=== PATIENT | male | born 1950 | race Caucasian/White ===

== ENCOUNTER 2018-10-04 11:36 | Observation (INO) | payer MEDICARE, OTHER ==
[~2018-10-04] VITALS: Ht 175.3 cm; Wt 64.4 kg
[2018-10-04] MEDS ORDERED: NS(*) 0.9% 500 ML BAG 500 ML IV ONE (11:42)
--- NOTE | 2018-10-04 11:42 | ER Report ---
History and Physical Time Seen By MD: 11:42 Hx. of Stated Complaint: Lightheadedness and dizziness while driving his RV through [place] HPI/ROS CHIEF COMPLAINT: Dizziness HISTORY OF PRESENT ILLNESS: 68 year old male presents to ED with dizziness and blurry vision that occurred while driving his RV through [place]. Reports he was talking to his bank on the phone when this occurred. States he was really angry, then all of a sudden he felt lightheaded and had blurry vision, so he pulled over on the side of the road. States he had a slight headache as well. Reports he doesn't remember anything after that. Denies associated symptoms of chest pain, SOB, nausea, vomiting. Josef is driving from [place] to [facility]. He has been on the road for 6 days. REVIEW OF SYSTEMS: Constitutional: No fever, no chills. HEENT: Reports slight headache that was present with the dizziness. Respiratory: No cough, no dyspnea. Cardiovascular: No chest pain, no palpitations. Gastrointestinal: No vomiting, no abdominal pain. Musculoskeletal: No back pain. Allergies: Coded Allergies: No Known Drug Allergies (Unverified , 10/04/18) Past Medical/Surgical History Past medical hx significant for CVA in 2013, asthma, throat cancer treated with radiation in 2004- in remission, thyroid disorder. Due to radiation, has trouble swallowing, so has feeding tube placed. Significant past surgical hx significant for stent placement in 2013 and throat surgery in 2004. Reviewed Nurses Notes: Yes Constitutional Vital Sign - Last 24 Hours 10/04/18 10/04/18 10/04/18 10/04/18 11:36 11:37 11:41 11:50 Pulse ??? 104 Resp 24 B/P (MAP) 127/79 (95) 127/79 Pulse Ox 93 O2 Delivery Nasal Cannula O2 Flow Rate 3.0 10/04/18 10/04/18 10/04/18 10/04/18 11:59 12:00 12:06 12:30 Pulse 98 Resp 26 B/P (MAP) 82/55 (64) 86/72 (77) 131/76 (94) Pulse Ox 92 10/04/18 10/04/18 10/04/18 10/04/18 12:36 12:41 13:00 13:11 Pulse ??? 95 Resp 20 15 B/P (MAP) 129/75 (93) Pulse Ox 93 10/04/18 10/04/18 10/04/18 13:30 13:52 13:57 B/P (MAP) 118/67 (84) 127/84 (98) Pulse Ox 93 Physical Exam General Appearance: The patient is alert, has no immediate need for airway protection and no current signs of toxicity. Eyes: Pupils equal and round no injection. Respiratory: Chest is non tender, lungs are coarse throughout with diminished breath sounds bilaterally with auscultation. Cardiac: regular rate and rhythm with murmur- had stent placed in 2013 Gastrointestinal: Abdomen is soft and non tender, no masses, bowel sounds normal. Musculoskeletal: Neck: Neck is supple and non tender. Extremities have full range of motion and are non tender. Skin: No rashes or lesions. DIFFERENTIAL DIAGNOSIS: After history and physical exam differential diagnosis was considered for dehydration, stress/anxiety, altitude sickness, IN, stroke, PE Medical Decision Making Data Points Result Diagram: 10/04/18 1134 10/04/18 1134 Laboratory Hematology Test 10/04/18 11:34 Red Blood Count 4.94 M/uL (4.00-5.60) Mean Corpuscular Volume 91.7 fL (80.0-96.0) Mean Corpuscular Hemoglobin 30.4 pg (26.0-33.0) Mean Corpuscular Hemoglobin Concent 33.2 g/dL (32.0-36.0) Red Cell Distribution Width 15.3 % (11.5-14.5) Mean Platelet Volume 9.3 fL (7.2-11.1) Neutrophils (%) (Auto) 82.3 % (39.4-72.5) Lymphocytes (%) (Auto) 9.4 % (17.6-49.6) Monocytes (%) (Auto) 7.1 % (4.1-12.4) Eosinophils (%) (Auto) 0.9 % (0.4-6.7) Basophils (%) (Auto) 0.3 % (0.3-1.4) Nucleated RBC Relative Count (auto) 0.0 /100WBC Neutrophils # (Auto) 6.5 K/uL (2.0-7.4) Lymphocytes # (Auto) 0.7 K/uL (1.3-3.6) Monocytes # (Auto) 0.6 K/uL (0.3-1.0) Eosinophils # (Auto) 0.1 K/uL (0.0-0.5) Basophils # (Auto) 0.0 K/uL (0.0-0.1) Nucleated RBC Absolute Count (auto) 0.00 K/uL Prothrombin Time 12.6 seconds (12.0-14.4) Prothromb Time International Ratio 0.95 Activated Partial Thromboplast Time 25 seconds (23-35) Sodium Level 139 mmol/L (137-145) Potassium Level 4.5 mmol/L (3.5-5.0) Chloride Level 94 mmol/L (98-107) Carbon Dioxide Level 35 mmol/L (22-30) Blood Urea Nitrogen 42 mg/dl (9-21) Creatinine 1.00 mg/dl (0.66-1.25) Glomerular Filtration Rate Calc > 60.0 Random Glucose 138 mg/dl (75-110) Calcium Level 9.7 mg/dl (8.4-10.2) Total Bilirubin 0.3 mg/dl (0.2-1.3) Aspartate Amino Transf (AST/SGOT) 32 U/L (0-35) Alanine Aminotransferase (ALT/SGPT) 29 U/L (0-56) Alkaline Phosphatase 136 U/L (0-126) Troponin I < 0.012 ng/ml B-Type Natriuretic Peptide 24 pg/ml (0-100) Total Protein 8.8 g/dl (6.3-8.2) Albumin 4.1 g/dl (3.5-5.0) Chemistry Test 10/04/18 11:34 White Blood Count 7.9 k/uL (4.5-11.0) Red Blood Count 4.94 M/uL (4.00-5.60) Hemoglobin 15.0 g/dL (14.0-18.0) Hematocrit 45.2 % (42.0-52.0) Mean Corpuscular Volume 91.7 fL (80.0-96.0) Mean Corpuscular Hemoglobin 30.4 pg (26.0-33.0) Mean Corpuscular Hemoglobin Concent 33.2 g/dL (32.0-36.0) Red Cell Distribution Width 15.3 % (11.5-14.5) Platelet Count 224 K/uL (150-450) Mean Platelet Volume 9.3 fL (7.2-11.1) Neutrophils (%) (Auto) 82.3 % (39.4-72.5) Lymphocytes (%) (Auto) 9.4 % (17.6-49.6) Monocytes (%) (Auto) 7.1 % (4.1-12.4) Eosinophils (%) (Auto) 0.9 % (0.4-6.7) Basophils (%) (Auto) 0.3 % (0.3-1.4) Nucleated RBC Relative Count (auto) 0.0 /100WBC Neutrophils # (Auto) 6.5 K/uL (2.0-7.4) Lymphocytes # (Auto) 0.7 K/uL (1.3-3.6) Monocytes # (Auto) 0.6 K/uL (0.3-1.0) Eosinophils # (Auto) 0.1 K/uL (0.0-0.5) Basophils # (Auto) 0.0 K/uL (0.0-0.1) Nucleated RBC Absolute Count (auto) 0.00 K/uL Prothrombin Time 12.6 seconds (12.0-14.4) Prothromb Time International Ratio 0.95 Activated Partial Thromboplast Time 25 seconds (23-35) Glomerular Filtration Rate Calc > 60.0 Calcium Level 9.7 mg/dl (8.4-10.2) Total Bilirubin 0.3 mg/dl (0.2-1.3) Aspartate Amino Transf (AST/SGOT) 32 U/L (0-35) Alanine Aminotransferase (ALT/SGPT) 29 U/L (0-56) Alkaline Phosphatase 136 U/L (0-126) Troponin I < 0.012 ng/ml B-Type Natriuretic Peptide 24 pg/ml (0-100) Total Protein 8.8 g/dl (6.3-8.2) Albumin 4.1 g/dl (3.5-5.0) Coagulation Test 10/04/18 11:34 Prothrombin Time 12.6 seconds Prothromb Time International Ratio 0.95 Activated Partial Thromboplast Time 25 seconds EKG/Imaging EKG Interpretation 12 lead EKG: Rhythm: normal sinus rhythm with a ventricular rate of 99 [place]: normal QRS: normal ST segments: normal Monitor Interpretation: Normal Sinus Rhythm Imaging Technique: CHEST PA LAT HISTORY: Dizziness Comparison studies: None FINDINGS: Scattered interstitial and reticular lung markings are noted. No pleural effusion. There is biapical pleural thickening. Atherosclerotic changes are noted within the thoracic aorta. The cardiac silhouette is unremarkable. IMPRESSION: 1. Chronic lung findings as above. Superimposed interstitial pneumonia is difficult to exclude given absence of comparison radiographs. Report Dictated By: Robert Riley DO at 10/04/2018 12:53 PM Report E-Signed By: Robert Riley DO at 10/04/2018 12:55 PM ED Course/Re-evaluation ED Course Upon arrival to the ED via EMS, patient was admitted to an exam room, hx and physical obtained, differentials considered. Josef presents to ED with dizziness and blurry vision that occurred [place]. Reports he was talking to his bank on the phone when this occurred. States he was really angry, then all of a sudden he felt lightheaded and had blurry vision, so he pulled over on the side of the road. States he had a slight headache as well. Reports he doesn't remember anything after that. Denies associated symptoms of chest pain, SOB, nausea, vomiting. Josef is driving from [place] to [facility]. He has been on the road for 6 days. Heart with murmur, regular rate. Lungs coarse and diminished throughout. O2 levels below 90% on RA. EKG, chest x-ray, CBC, CMP, coag studies, troponin, BNP ordered. IV started. 1L NS infused. 81mg Aspirin given. O2 via NC administered. WBC 7.9, Neutrophils 82.3, RBC 4.94, BUN 452, Cr 1.0, Alk phos 136, troponin negative, PT/INR wnl. Chest x-ray findings: Scattered interstitial and reticular lung markings are noted. No pleural effusion. There is biapical pleural thickening. Atherosclerotic changes are noted within the thoracic aorta. The cardiac silhouette is unremarkable. Superimposed interstitial pneumonia is difficult to exclude given absence of comparison radiographs. Will treat for pneumonia with azithromycin. Patient taken off of O2, and able to keeps sats at 88% and above on RA. Was planning on discharging home, but as patient was going to the restroom prior to discharge, he passed out in the bathroom. Dr. Pepe- Still, hospitalist, consulted with. Will plan to admit patient to observe overnight. Patient is in agreement with plan of care. Decision to Disposition Date: Oct 04, 2018 Decision to Disposition Time: 13:22 Depart Departure Latest Vital Signs Vital Signs Date Time Temp Pulse Resp B/P (MAP) Pulse Ox O2 Delivery O2 Flow Rate FiO2 10/04/18 13:57 93 10/04/18 13:52 127/84 (98) 10/04/18 13:11 95 15 10/04/18 11:50 3.0 10/04/18 11:41 Nasal Cannula Impression: Primary Impression: Syncope Additional Impressions: Pneumonia Dehydration Condition: Condition Unchanged Disposition: Admitted from ER EKG TECHNICIAN/PA consult with MD: Verbally Problem Qualifiers Primary Impression: Syncope Syncope type: unspecified Qualified Codes: R55 - Syncope and collapse Additional Impressions: Pneumonia Pneumonia type: due to unspecified organism Laterality: bilateral Lung location: unspecified part of lung Qualified Codes: J18.9 - Pneumonia, unspecified organism YARITZA ESTEVEZ Oct 04, 2018 11:42
[2018-10-04] MEDS ORDERED: ASPIRIN 81 MG CHEW PO ONE (11:45)
[2018-10-04 11:49] LABS: PLATELET COUNT, AUTOMATED 224 K/uL (150-450)
--- NOTE | 2018-10-04 11:58 | EKG ---
FACILITY: [facility] [place] PATIENT NAME: SENIA BOSCH : [id number] MR: [id number] V: [id number] EXAM DATE: ORDERING PHYSICIAN: YARITZA ESTEVEZ TECHNOLOGIST: KIMBERLEY Test Reason : CP/SOB Blood Pressure : / mmHG Vent. Rate : 099 BPM Atrial Rate : 099 BPM P-R Int : 168 ms QRS Dur : 086 ms QT Int : 348 ms P-R-T Axes : 065 054 074 degrees QTc Int : 446 ms Normal sinus rhythm Normal ECG No previous ECGs available Confirmed by Xavier Workman ([id number]) on 10/04/2018 5:17:58 PM Referred By: ZENAIDA Confirmed By:Xavier Feng
[2018-10-04 11:59] LABS: INR 0.95
--- NOTE | 2018-10-04 12:59 | RADIOLOGY IMAGING REPORT ---
FACILITY: [facility] PATIENT NAME: Josef Rush : 1950 MR: [id number] V: [id number] EXAM DATE: ORDERING PHYSICIAN: YARITZA ESTEVEZ TECHNOLOGIST: Location: [facility] [place] Patient: Josef Rush : 1950 Visit/Account:[id number] Date of Sevice: 10/04/2018 Technique: CHEST PA LAT HISTORY: Dizziness Comparison studies: None FINDINGS: Scattered interstitial and reticular lung markings are noted. No pleural effusion. There is biapical pleural thickening. Atherosclerotic changes are noted within the thoracic aorta. The cardia c silhouette is unremarkable. IMPRESSION: 1. Chronic lung findings as above. Superimposed interstitial pneumonia is difficult to exclude given absence of comparison radiographs. Report Dictated By: Robert Riley DO at 10/04/2018 12:53 PM Report E-Signed By: Robert Riley DO at 10/04/2018 12:55 PM WSN:[id number]
[2018-10-04] MEDS ORDERED: AZITHROMYCIN 100 MG/5 ML SUSP PO ONE (13:25)
[2018-10-04] MEDS ORDERED: AZITHROMYCIN 600 MG/15 ML BTL PO ONE (13:35)
[2018-10-04] MEDS ORDERED: PATIENT'S OWN MED FT SCH (15:15)
[2018-10-04 15:21] VITALS: BP 141/97
--- NOTE | 2018-10-04 17:04 | History & Physical ---
History of Present Illness Chief Complaint syncope History of Present Illness 68M presented after syncopal episode. PMHx significant for stroke, head/neck cancer, dysphagia. Reports driving to [place] in from [place], he has been reducing his prescribed free water and Jevity while traveling. Began feeling poorly [place], stopped and felt unwell there. Asked for warm washcloth and next thing he knew was waking up. EMS found him to have normal vital signs. Brought to ER where work up showed mild dehydration, low BP, possible interstitial pneumonia superimposed on significant fibrosis and scaring. Was set to be discharged after IV fluids with Zpack and had another syncopal episode after rushing up to restroom,. previous syncopal episodes years ago. Denies CP, edema, palpitations. Admitted for observation and monitoring on telemetry. History Problems: (1) Head and neck cancer Status: Chronic (2) Dysphagia Status: Chronic (3) Stroke Status: Chronic Allergies: Coded Allergies: No Known Drug Allergies (Unverified , 10/04/18) Patient History: FH: dementia FATHER (Father had Cardiac Disease and Dementia ) MOTHER FHx: heart disease FATHER (Father had Cardiac Disease and Dementia ) BROTHER OR SISTER Hx Smoking: Yes Smoking Status: Former Smoker When Quit Tobacco?: 2003 Hx Alcohol Use: Yes (use to have occational drink none now) Hx Substance Use Disorder: No History of IV Drug Use: No Review of Systems All Systems Reviewed/Normal: Yes, Except as Noted Neurological: Syncope Cardiovascular: Orthostatic Hypotension; No Chest Pain, No Palpitations Respiratory: No Shortness of Breath, No Cough Exam Vital Signs Vital Signs Date Time Temp Pulse Resp B/P (MAP) Pulse Ox O2 Delivery O2 Flow Rate FiO2 10/04/18 15:35 97 Nasal Cannula 4.0 10/04/18 15:21 97.7 91 16 141/97 (112) General Appearance: Alert, Awake, No Acute Distress Neuro: No Gross deficits Cardiovascular: Normal Rhythm & Peripheral Pulses Respiratory: No Respiratory Distress GI: Abd Soft and Non-Tender Extremities: Soft and Non Tender, Warm, Pulses, Perfused Medical Decision Making Data Points Result Diagram: 10/04/18 1134 10/04/18 1134 EKG / Imaging EKG Interpretation NSR Assessment and Plan Problems: (1) Syncope Status: Acute Assessment & Plan: Apparently secondary to dehydration, orthostasis, mild hypoxia. EKG NSR, no chest pain. Will monitor on telemetry, continue IV hydration. (2) Dehydration Status: Acute Assessment & Plan: Continue IV hydration, encourage taking full free water camacho unt prescribed. (3) Pneumonia Status: Acute Assessment & Plan: Interstitial atypical pneumonia. Will continue Zpack previously prescribed. Wean O2 as tolerated. (4) Dysphagia Status: Chronic Assessment & Plan: Has PEG for which he gets all nutrition through. Continue Jevity and 300cc free water TID. (5) Head and neck cancer Status: Chronic Assessment & Plan: Post radiation and chemotherapy 2003. (6) Stroke Status: Chronic Assessment & Plan: 2013, no residual deficits. Has carotid stent. Venous Thromboembolism Antithrombotics Is Pt On Any Antithrombotics?: Yes Exam Sepsis Risk: No Definite Risk Problem Qualifiers (1) Syncope: Syncope type: unspecified Qualified Codes: R55 - Syncope and collapse (2) Pneumonia: Pneumonia type: due to unspecified organism Laterality: bilateral Lung location: unspecified part of lung Qualified Codes: J18.9 - Pneumonia, unspecified organism CHUCK CANTU DO Oct 04, 2018 17:04
[2018-10-04] MEDS: NS(*) 0.9% 1000 ML BAG 1,000 ML IV PRN ×2 (17:14→23:48)
[2018-10-04] MEDS ORDERED: AZITHROMYCIN 600 MG/15 ML BTL FT SCH (17:30)
[2018-10-04 18:28] VITALS: BP 112/66
[2018-10-04 18:30] VITALS: BP 98/6
[2018-10-04 18:34] VITALS: BP 90/48
[2018-10-04] MEDS ORDERED: LAN30PT PO (18:40)
[2018-10-04] MEDS ORDERED: AZEL137S NS (18:41)
[2018-10-04] MEDS ORDERED: LEVO88TA45 PO (18:43)
[2018-10-04] MEDS ORDERED: ALB6.7R INH ×2 (18:45)
[2018-10-04 23:00] VITALS: BP 111/75
[2018-10-05 03:11] VITALS: BP 111/71
[2018-10-05 07:55] VITALS: BP 93/58
[2018-10-05] MEDS ORDERED: AZITHROMYCIN 600 MG/15 ML BTL PO SCH ×2 (09:00)
[2018-10-05] MEDS: LEVOTHYROXINE SOD 0.088 MG TAB FT SCH (09:07)
--- NOTE | 2018-10-05 09:09 | NUR ---
Patient and spouse state he took his own levothyroxine 88mg this morning.
--- NOTE | 2018-10-05 09:14 | RADIOLOGY IMAGING REPORT ---
FACILITY: [facility] [place] PATIENT NAME: Josef Rush : 1950 MR: [id number] V: [id number] EXAM DATE: ORDERING PHYSICIAN: UMBERTO COLVIN TECHNOLOGIST: Location: [facility] Patient: Josef Rush : 1950 Visit/Account:[id number] Date of Sevice: 10/05/2018 CHEST SINGLE AP Indication: hypoxia Comparison: Chest x-ray 10/04/2018 Findings: Lungs: Bilateral apical thickening/scarring is unchanged. Prominent interstitial markings both lung bases are stable. There is no focal airspace opacity or consolidation. Mediastinum/pulmonary vasculature: Heart size and pulmonary vasculature are normal. Bones/soft tissues: Normal. IMPRESSION: 1. Chronic scarring right and left apex. 2. No acute airspace opacity or pneumonia. Report Dictated By: Yosvany Hinton at 10/05/2018 9:08 AM Report E-Signed By: Yosvany Hinton at 10/05/2018 9:09 AM [id number]:[email or web address]
--- NOTE | 2018-10-05 09:19 | Medical Nutrition Therapy ---
Nutrition Anthropometrics Height (Inches): 69.00 Height (Calculated Centimeters: 175.029184 Weight (Pounds): 142 Weight (Calculated Kilograms): 64.410 BMI: 21 Derrek Nutrition Score: Adequate Derrek Nutrition Risk Score: 22 Dietary Referral Nutrition Risk Factors: Tube Feeding Nutrition Risk Comment: Pt manages Tube Feed, has stablized in weight Physical Findings Physical Appearance: Skin Appearance Skin Appearance: Edema Edema Location Modifier: Edema Location: Type of Edema: Degree of Edema: Gastrointestinal Symptoms GI Symtoms: Tube Present: PEG, Feeding Bowel Sounds: Recent Bowel Pattern: Stool Characteristics: Nutrition/Food History Difficulty Swallowing Good Nutritional Diagnosis Nutritional Risk Acuity 2: Head/Neck/GI Cancer Past Medical History: Stroke, Dysphagia, Mouth and Throat Cancer 2003 Nutritional Acuity: 2-Moderate Nutrition Diagnosis: Inadequate Fluid Intake Nutrition Etiology: Inadeq. Food/Irene Intake Nutrition Problem/Etiology/Sym: Reducing free water flushes, dehydration upon admit, syncope Energy Requirement: 1822 (MSJ AF1.3) Protein Requirement: 77 (1.2g/kg) Fluid Requirement: 1936 (30-35mL/kg 1,936-2,260) Nutrition Intervention: Nutrition support, Change diet (Switch EN Formula to Osmolite 1.5) Nutritional Support Current Enteral / Parental: Tube Feeding Tube Feeding Formulas: Jevity 1cal/ml-Standard Tube Feeding Supplement Streng: Full Feeding Route: PEG Bolus Feedin TID Current Calories: 1422 Current Protein: 63 (63 grams) Current Lipids Calories: 444 Total Current Calories: 1422 Free H2O bolus for hydration (: 300 mL TID Recommended Enteral / Parental: Tube Feeding Recommended Tube Feeding Formu: Osmolite 1.5cal/ml-Hi Blane Tube Feeding Supplement Streng: Full Recommended Feeding Route: PEG Recommended Bolus Feedin mL TID (Equivalent to 2 cans per meal) Recommended Feeding Comment: Typically give bolus at 05:30, 11:30, and 17:00 Recommended Calories: 2133 Recommended Protein: 89 (89 grams) Recommended Lipids Calories: 628 Total Recommended Calories: 2133 Nutrition Monitoring & Eval Nutrition Follow-Up: Fair Intake Nutrition Monitoring: Review electrolytes prior to discharge. Pt admitted with syncope found to be dehydrated as well. RD Patient Assessment Time: [address] Assessment Type: Nutrition Support Consult Patient Nutrition Acuity: 2-Moderate Follow Up Date: Oct 08, 2018 Nutritional Comment: Pt admitted with syncope found to be dehydrated. According to H&P, pt had been cutting back on free water flushes. Pt has hx of head and neck cancer and has a PEG. Typical home regimen is 474 mL (2 cans) TID of Jevity 1.5 with free water flushes of 300 TID. Pt administers boluses at 5:30, 11:30, and 17:00. Pt currently recieving Jevity 1.0 in house, recommend switch to Osmolite 1.5 which is very similar to Jevity 1.5. ALICIA MOELLER Oct 05, 2018 09:19
[2018-10-05] MEDS: LANSOPRAZOLE 30 MG CAPSULE.DR PO SCH (09:31)
[2018-10-05] MEDS ORDERED: PATIENT'S OWN MED PO SCH (10:00)
[2018-10-05] MEDS: NS(*) 0.9% 1000 ML BAG 1,000 ML IV PRN (10:16)
[2018-10-05 10:18] VITALS: BP 129/73
--- NOTE | 2018-10-05 10:38 | Hospitalist Progress Note ---
Subjective Progress Notes Subjective He reports feeling improved. He has not had any recurrent syncope/presyncope. Physical Exam Vital Signs Date Time Temp Pulse Resp B/P (MAP) Pulse Ox O2 Delivery O2 Flow Rate FiO2 10/05/18 10:18 97.5 94 16 129/73 (91) 90 Nasal Cannula 1.0 Intake and Output 10/05/18 07:00 # Voids 4 General Appearance: Alert, Awake Neck: Other (radiation/surgical changes) Cardiovascular: Regular Rate and Rhythm Respiratory: Clear to Auscultation Chest: No Tenderness GI: Soft and Non-Tender (gastrostomy site looks good) Extremities: Warm, Perfused Psych: Alert & Oriented X3 Result Diagram: 10/04/18 1134 10/05/18 0549 Monitor Interpretation: Normal Sinus Rhythm Assessment and Plan Problems: (1) Syncope Status: Acute Assessment & Plan: Appears to be secondary to dehydration, orthostasis, mild hypoxia. EKG NSR, no chest pain, troponin negative, BNP normal, telemetry unremarkable. Will continue IV hydration, monitoring, and start to mobilize more. (2) Dehydration Status: Acute Assessment & Plan: Continue IV hydration. We have resumed his usual regimen with his tube feedings and encouraged him to resume the full amount of free water prescribed. (3) Pneumonia Status: Acute Assessment & Plan: It was originally felt he may have an interstitial atypical pneumonia. He was started on azithromycin. His WBC count is normal, he has been afebrile, repeat CXR does not show an infiltrate and only some mild "scarring". Will stop the azithromycin. Wean O2 as tolerated. (4) Dysphagia Status: Chronic Assessment & Plan: Has PEG for all his nutrition. Continue Jevity (or Osmolite) and 300cc free water TID. (5) Head and neck cancer Status: Chronic Assessment & Plan: Post radiation and chemotherapy 2003. (6) Stroke Status: Chronic Assessment & Plan: 2013, no residual deficits. Has carotid stent. Exam Sepsis Risk: No Definite Risk Problem Qualifiers (1) Syncope: Syncope type: unspecified Qualified Codes: R55 - Syncope and collapse (2) Pneumonia: Pneumonia type: due to unspecified organism Laterality: bilateral Lung location: unspecified part of lung Qualified Codes: J18.9 - Pneumonia, unspecified organism UMBERTO COLVIN MD Oct 05, 2018 10:38
[2018-10-05 14:19] VITALS: BP 135/83
[2018-10-05] MEDS ORDERED: AZITHROMYCIN 600 MG/15 ML BTL FT SCH (17:30)
[2018-10-05] MEDS ORDERED: LANS30TA12 PO (18:15)
[2018-10-05] MEDS ORDERED: ALB18R INH (18:16)
[2018-10-05 20:10] VITALS: BP 114/69
[2018-10-05 23:11] VITALS: BP 113/69
[2018-10-06] MEDS: NS(*) 0.9% 1000 ML BAG 1,000 ML IV PRN (02:08)
[2018-10-06 03:19] VITALS: BP 97/61
[2018-10-06] MEDS: LEVOTHYROXINE SOD 0.088 MG TAB FT SCH (05:32)
[2018-10-06 06:17] LABS: PLATELET COUNT, AUTOMATED 192 K/uL (150-450)
[2018-10-06 07:20] VITALS: BP 130/84
[2018-10-06] MEDS: LANSOPRAZOLE 30 MG CAPSULE.DR PO SCH (08:36)
--- NOTE | 2018-10-06 08:50 | NUR ---
Physical Therapy Impression PT eval complete. Pt safe for DC when medically appropriate. Physical Therapy Goals Patient's Goals
--- NOTE | 2018-10-06 09:49 | Hospitalist Depart ---
Discharge Summary Reason for Hosp/Final Diag: (1) Syncope Status: Acute Hospital Course & Plan: He did suffer a syncopal episode prior to admission. He was treated with IV fluids and placed on supplemental oxygen. He has had no further episodes. (2) Dehydration Status: Acute Hospital Course & Plan: Resolved with IV fluids. (3) Pneumonia Status: Acute Hospital Course & Plan: His initial x-ray showed questionable infiltrates, and he was started on azithromycin. A subsequent x-ray revealed his changes to be chronic scarring. Antibiotics have been discontinued. (4) Dysphagia Status: Chronic Hospital Course & Plan: Has PEG for all his nutrition. Continue Jevity (or Osmolite) and 300cc free water TID. (5) Head and neck cancer Status: Chronic Hospital Course & Plan: Post radiation and chemotherapy 2003. (6) Stroke Status: Chronic Hospital Course & Plan: 2013, no residual deficits. Has carotid stent. Departure Latest Vital Signs Vital Signs 10/06/18 07:20 Temp 97.6 Pulse 90 Resp 16 B/P (MAP) 130/84 (99) Weight (Pounds): 142 Result Diagram: 10/06/18 0537 10/06/18 0537 Condition: Improved Discharge: Home, Self Care Discharge Instructions Home Meds Reported Medications Albuterol Sulfate (VENTOLIN HFA) 18 Gm Inh, 2 PUFF INH Q4-6H, INH 10/05/18 Lansoprazole (PREVACID) 30 Mg Tab.rap.dr, 30 MG PO QDAY, TAB 10/05/18 Levothyroxine Sodium (LEVOTHYROXINE SODIUM) 88 Mcg Tablet, 88 MCG PO QDAY 10/04/18 Azelastine Hcl 0.1% [place] (AZELASTINE HCL 0.1% SPRAY) 137 Mcg/0.137 Ml [place].pump, 137 MCG NS BID, SPRAY 10/04/18 Discontinued Reported Medications Albuterol Sulfate (PROVENTIL HFA) 6.7 Gm Inh, 2 PUFF INH Q4-6H, INH 10/04/18 Albuterol Sulfate (PROVENTIL HFA) 6.7 Gm Inh, 1-2 PUFF INH 3-4XD, INH 10/04/18 Diet: Regular Activity: As Tolerated Special Instructions: Follow up with your primary care provider within 7-10 days. Take medications as prescribed. Wear oxygen continuously. Venous Thromboembolism Antithrombotics Is Pt On Any Antithrombotics?: Yes Problem Qualifiers (1) Syncope: Syncope type: unspecified Qualified Codes: R55 - Syncope and collapse (2) Pneumonia: Pneumonia type: due to unspecified organism Laterality: bilateral Lung location: unspecified part of lung Qualified Codes: J18.9 - Pneumonia, unspecified organism JOSE OLVERA DO Oct 06, 2018 09:49
== END 2018-10-06 09:45 | disposition home or self-care (01) ==
LOC: ER 11:46 → INTOOBSV 14:10 → MED 14:10
PROVIDERS: ADMIT Internal Medicine; ATTEND Internal Medicine
DX: R55 Syncope and collapse (principal); J18.9 Pneumonia, unspecified organism; E86.0 Dehydration; J45.909 Unspecified asthma, uncomplicated; R13.10 Dysphagia, unspecified; Z87.891 Personal history of nicotine dependence; Z86.73 Personal history of transient ischemic attack (TIA), and cerebral infarction without residual deficits; Z95.5 Presence of coronary angioplasty implant and graft
CPT/HCPCS: 36415; 71045; 71046; 83880; 84484; 85025; 85610; 85730; 93005; 94667; 94668; 96360; 96361; 97161; 99284; A9270; G0378; J7030; J7040; Q0144; 82040; 82247; 82310; 82374; 82435; 82565; 82947; 84075; 84132; 84155; 84295; 84450; 84460; 84520

== ENCOUNTER → 2018-10-04 | Outpatient (CLI) | payer MEDICARE, OTHER ==
[~2018-10-04] MED LIST: ALB18R INH; ALB6.7R INH; AZEL137S NS; LAN30PT PO; LANS30TA12 PO; LEVO88TA45 PO
== END ==
LOC: AMB 11:05
PROVIDERS: ATTEND Nurse Practitioner
DX: R41.82 Altered mental status, unspecified (principal); R09.02 Hypoxemia
CPT/HCPCS: A0425; A0427